=== PATIENT | male | born 1945 | race Caucasian/White ===

== ENCOUNTER 2022-01-29 11:43 | Outpatient (CLI) | payer MEDICARE, OTHER ==
--- NOTE | 2022-01-29 15:14 | Ultrasound Report ---
PROCEDURE: Duplex Ext Veins Left INDICATIONS: PAIN IN LEFT THIGH TECHNIQUE: Real-time imaging, as well as color and pulse Doppler interrogation, were performed of the lower extr emity deep veins from the inguinal ligament to the popliteal fossa. COMPARISON: None. FINDINGS: The deep veins are normally compressible, and free of intraluminal thrombus. Color and pu lse Doppler demonstrate normal phasic intraluminal flow. There is normal augmentation response to di stal compression maneuver. IMPRESSION: No evidence of deep venous thrombosis, left lower extremity. Left inguinal adenopathy measures 3.6 x 1.4 x 3.3 cm Reviewed by: Daniel Hutchins MD on 01/29/2022 2:13 PM [facility] Approved by: Daniel Hutchins MD on 01/29/2022 2:13 PM [place] Station ID: [id number]
== END 2022-01-29 11:44 | disposition home or self-care (01) ==
LOC: DI 11:43
PROVIDERS: ATTEND Nurse Practitioner
DX: M79.652 Pain in left thigh (principal); R59.0 Localized enlarged lymph nodes

== ENCOUNTER 2022-05-06 14:15 | Emergency (ER) | payer MEDICARE, OTHER ==
[2022-05-06 14:26] VITALS: BP 129/71
--- NOTE | 2022-05-06 15:25 | XRAY Report ---
PROCEDURE: Chest 2 View X-Ray INDICATIONS: cough TECHNIQUE: 2 views of the chest were acquired. COMPARISON: Correlation is made with chest CT, 08/28/2021. FINDINGS: Surgical changes and devices: None. Lungs and pleura: No pleural effusions or pneumothorax. Mild generalized interstitial prominence can be seen. Mediastinum: Mediastinal contours are normal. Heart size is moderately enlarged. Bones and chest wall: No suspicious bony abnormalities. Age-appropriate degenerative changes are see n. Soft tissues appear unremarkable. IMPRESSION: Cardiomegaly and interstitial prominence. CHF is suspected. Reviewed by: Panchito Salcedo MD on 05/06/2022 2:24 PM [facility] Approved by: Panchito Salcedo MD on 05/06/2022 2:24 PM [facility] Station ID: [id number]
[2022-05-06 16:27] LABS: B. PARAPERTUSSIS- RESP PCR PAN NOT DETECTED; B. PERTUSSIS- RESP PCR PANEL NOT DETECTED; C. PNEUMONIAE- RESP PCR PANEL NOT DETECTED; CORONAVIRUS 229E-RESP PCR NOT DETECTED; CORONAVIRUS HKU1-RESP PCR NOT DETECTED; CORONAVIRUS NL63-RESP PCR NOT DETECTED; CORONAVIRUS OC43-RESP PCR NOT DETECTED; HUMAN METAPNEUMOVIRUS NOT DETECTED; INFLUENZA A- RESP PCR PANEL NOT DETECTED; INFLUENZA B - RESP PCR PANEL NOT DETECTED; M. PNEUMONIAE- RESP PCR PANEL NOT DETECTED; PARAINFLUENZA VIRUS 1 NOT DETECTED; PARAINFLUENZA VIRUS 2 NOT DETECTED; PARAINFLUENZA VIRUS 3 NOT DETECTED; PARAINFLUENZA VIRUS 4 NOT DETECTED; RHINOVIRUS/ENTEROVIRUS DETECTED; RSV- RESP PCR PANEL NOT DETECTED; SARS-CoV-2 -RESP PCR PANEL NOT DETECTED
--- NOTE | 2022-05-06 16:36 | ED Physician Documentation ---
PD HPI URI - Stated complaint Stated Complaint: COUGH - Chief complaint Chief Complaint: Resp - History obtained from History obtained from: Patient, Family - History of Present Illness Timing - onset: How many days ago (3) Timing duration: Days (3) Timing details: Gradual onset Pain level max: 0 Pain level now: 0 Associated symptoms: Nasal congestion, Rhinorrhea, Dry cough. No: Fever, Chills - Additional information Additional information: Patient is a 76-year-old male has been coughing for the past 3 days. Nothing seems to make it better or worse. No fever. No chills. Has had rhinorrhea and congestion. Dry cough. Patient is a dialysis patient. Review of Systems Constitutional: denies: Fever, Chills Skin: denies: Rash Musculoskeletal: denies: Neck pain, Back pain Neurologic: denies: Headache PD PAST MEDICAL HISTORY - Past Medical History Past Medical History: Yes Other Past Medical History: Chronic renal failure - Past Surgical History Past Surgical History: Yes - Allergies Allergies/Adverse Reactions: Allergies Allergy/AdvReac Type Severity Reaction Status Date / Time enalapril Allergy Anaphylaxis Verified 05/06/22 14:22 metoclopramide [From Reglan] Allergy Respiratory Verified 05/06/22 14:22 - Living Situation Living Situation: reports: With family Living Arrangement: reports: At home - Social History Does the pt smoke?: No Does the pt have substance abuse?: No - Family History Family history: reports: Non contributory PD ED PE NORMAL - Vitals Vital signs reviewed: Yes - General General: Alert and oriented X 3, No acute distress - HEENT HEENT: Moist mucous membranes, Pharynx benign - Neck Neck: Supple, no meningeal sign - Cardiac Cardiac: RRR, Strong equal pulses - Respiratory Respiratory: No respiratory distress, Clear bilaterally - Abdomen Abdomen: Soft, Non tender, Non distended - Derm Derm: Warm and dry - Extremities Extremities: No calf tenderness / cord - Neuro Neuro: Alert and oriented X 3 Results - Vitals Vitals: Vital Signs - 24 hr 05/06/22 14:23 Temperature 36.8 C Heart Rate 75 Respiratory 16 Rate Blood Pressure 129/71 O2 Saturation 98 Oxygen O2 Source Room air - Labs Labs: Laboratory Tests 05/06/22 15:28 Nasal Adenovirus (PCR) NOT DETECTED Nasal B. parapertussis DNA (PCR) NOT DETECTED Nasal Coronavir 229E PCR NOT DETECTED Nasal Coronavir HKU1 PCR NOT DETECTED Nasal Coronavir NL63 PCR NOT DETECTED Nasal Coronavir OC43 PCR NOT DETECTED Nasal Enterovir/Rhinovir PCR DETECTED A Nasal Influenza B PCR NOT DETECTED Nasal Influenza A PCR NOT DETECTED Nasal Parainfluen 1 PCR NOT DETECTED Nasal Parainfluen 2 PCR NOT DETECTED Nasal Parainfluen 3 PCR NOT DETECTED Nasal Parainfluen 4 PCR NOT DETECTED Nasal RSV (PCR) NOT DETECTED Nasal B.pertussis DNA PCR NOT DETECTED Nasal C.pneumoniae (PCR) NOT DETECTED Matt Human Metapneumo PCR NOT DETECTED Nasal M.pneumoniae (PCR) NOT DETECTED Nasal SARS-CoV-2 (PCR) NOT DETECTED - Rads (name of study) Chest x-ray Radiology: Final report received, See rad report PD Medical Decision Making - ED course Complexity details: reviewed results, re-evaluated patient, considered differential, d/w patient ED course: 76-year-old male presents to the emergency department for cough. He is positive for rhinovirus. No evidence of pneumonia on chest x-ray. No hypoxia. No respiratory distress. No fevers. No indication for antibiotics. We will have him follow-up with his PCP for further care. Patient counseled regarding signs and symptoms for which I believe and urgent re-evaluation would be necessary. Patient with good understanding of and agreement to plan and is comfortable going home at this time This document was made in part using voice recognition software. While efforts are made to proofread this document, sound alike and grammatical errors may occur. Departure - Departure Disposition: 01 Home, Self Care Clinical Impression: Rhinovirus, Viral syndrome Condition: Good Instructions: ED Viral Syndrome Follow-Up: Yany Palomino ARNP [Primary Care Provider] - Within 1 week Comments: Your x-ray does not show any evidence of pneumonia tonight. Your respiratory PCR is positive for rhinovirus. You can continue your cough medication at home. Please follow-up with your doctor for further care. Return if you worsen. Discharge Date/Time: 05/06/22 16:44
== END 2022-05-06 16:44 | disposition home or self-care (01) ==
LOC: ED 14:15
DX: B34.8 Other viral infections of unspecified site (principal); B34.9 Viral infection, unspecified; Z20.822 Contact with and (suspected) exposure to COVID-19
CPT/HCPCS: 87633; 99283; 99284

== ENCOUNTER 2022-12-26 12:45 | Outpatient (CLI) | payer MEDICARE, OTHER ==
[2022-12-26] MEDS ORDERED: iohexoL-300 100 ML VIAL IVP ONE (15:31)
--- NOTE | 2022-12-26 17:24 | CT Report ---
PROCEDURE: ABDOMEN W/WO INDICATIONS: ABDOMINAL PAIN, HISTORY OF PANCREATIC MASS CONTRAST: 100ml Omni 300 TECHNIQUE: 4 phase scanning was performed. After the administration of intravenous contrast, 5 mm thick section s acquired from the diaphragm to the symphysis. 5 mm coronal and sagittal reformats were acquired. For radiation dose reduction, the following was used: automated exposure control, adjustment of mA a nd/or kV according to patient size. COMPARISON: None. FINDINGS: Image quality: Excellent. Pancreas: There is a large low-density pancreatic tail region mass which also extends to involve the posterior wall of the stomach. On image 50/4 this mass measures 6.8 x 4.9 cm. There is extensive inva afsaneh into the adjacent fat.. OTHER: Lung bases and heart: Numerous pulmonary nodules, which are all small, are consistent with pulmonary metastatic disease. There is moderate to marked cardiomegaly. Liver:Extensive liver metastatic lesions in both lobes, right greater than left. For example, there i s a large liver metastatic lesion in the right lobe near the dome measuring 6.2 x 5.6 cm on image 20/ 4. Numerous other liver metastatic lesions are identified. Another example is a inferior lesion in th e posterior segment of the right lobe which on coronal image 47/9 and axial image 66/4 measures 5.7 x 3.9 x 7.0 cm. Gallbladder and biliary tree: There is gravel in the gallbladder. The gallbladder is decompressed. Spleen: No splenomegaly. Adrenals: No adrenal nodule. Kidneys and ureters: No hydronephrosis. No renal cystic lesion which requires follow up. No solid mas s. 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 For example, there is a necrotic peritonea l implant on axial image 65/4 adjacent to the colon, which measures 2.4 cm. 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 There is loculated malignant ascites present. There are probable mucinous metastatic lesions in the retroperitoneal fat subjacent to the right kidney. Lymph nodes: No central or retroperitoneal adenopathy. Vessels: No infrarenal aortic aneurysm. Bones: No aggressive osseous abnormality. Other: No significant ventral hernia. IMPRESSION: 1. Based on the history provided, the patient has widespread metastatic disease, which may be related to a pancreatic primary. There is a large lesion involving the pancreatic tail extending to involve the posterior wall of the stomach. 2. There are extensive small pulmonary metastatic lesions. There is extensive liver metastatic diseas e. 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 There is loculated a scites. 3. Moderate to severe cardiomegaly. Reviewed by: Sergio Cedeno MD on 12/26/2022 5:22 PM PDT Approved by: Sergio Cedeno MD on 12/26/2022 5:22 PM PDT Station ID: [id number]
--- NOTE | 2022-12-27 12:01 | ONCOLOGY FOLLOW UP ---
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 The decision on sending patient to ER/for admission is deferred to Yany For oncology work up, patient needs CT Chest with contrast and STAT liver lesion biopsy. I am passing his info to my clinic staff for an early consultation appointment. Clinical Data: Allergies enalapril Allergy (Verified 05/06/22 14:22) Anaphylaxis metoclopramide [From Reglan] Allergy (Verified 05/06/22 14:22) Respiratory Home Medications Apixaban [Eliquis] 2.5 mg PO BID 06/27/22 [History Last Taken Unknown] Ascorbic Acid [Vitamin C] 1 tab PO DAILY 06/27/22 [History Last Taken Unknown] Atorvastatin [Lipitor] 20 mg PO DAILY 06/27/22 [History Last Taken Unknown] Cinacalcet HCl [Sensipar] 90 mg PO UD 06/27/22 [History Last Taken Unknown] Cyanocobalamin (Vitamin B-12) [Vitamin B-12 (1000 mcg sublingual)] 1,000 mg PO DAILY 06/27/22 [History Last Taken Unknown] Finasteride [Proscar] 5 mg PO DAILY 06/27/22 [History Last Taken Unknown] Folic Acid/Vit B Complex and C [Nephro-Cornel Tablet] 0.8 mg PO DAILY 06/27/22 [History Last Taken Unknown] Loratadine [Claritin] 10 mg PO DAILY 06/27/22 [History Last Taken Unknown] Metoprolol Succinate [Toprol Xl] 200 mg PO DAILY 06/27/22 [History Last Taken Unknown] Midodrine [ProAmantine] 10 mg PO ONCE 06/27/22 [History Last Taken Unknown] [place]-3/Dha/Epa/Fish Oil [Fish Oil 1,000 mg Softgel] 1,200 mg PO BID 06/27/22 [History Last Taken Unknown] Sevelamer Carbonate [Renvela] 4 tab PO ONCE 06/27/22 [History Last Taken Unknown] Folic Acid/Vit B Complex and C [Nephro-Cornel Tablet] 0.8 mg PO DAILY 09/11/22 [History Last Taken Unknown]
== END 2022-12-26 12:46 | disposition home or self-care (01) ==
LOC: LAB 12:45 → DI 12:46
PROVIDERS: ATTEND Nurse Practitioner
DX: K86.9 Disease of pancreas, unspecified (principal); C80.1 Malignant (primary) neoplasm, unspecified; C78.00 Secondary malignant neoplasm of unspecified lung; C78.7 Secondary malignant neoplasm of liver and intrahepatic bile duct; C78.6 Secondary malignant neoplasm of retroperitoneum and peritoneum; R18.0 Malignant ascites; I51.7 Cardiomegaly; Z99.2 Dependence on renal dialysis
CPT/HCPCS: 74170; Q9967